=== PATIENT | male | born 1980 | race Caucasian/White ===

== ENCOUNTER 2016-03-28 16:45 | Emergency (ER) | payer OTHER ==
[~2016-03-28] VITALS: Wt 115.0 kg
[2016-03-28] MEDS ORDERED: SOD CHLORIDE 0.9% 1,000 ML IV STA (18:15)
[2016-03-28] MEDS ORDERED: SOD CHLORIDE 0.9% 1,000 ML IV ONE (18:30)
--- NOTE | 2016-03-28 18:32 | ERD ---
ER Documentation Chief Complaint Date/Time DATE: 03/28/16 TIME: 18:30 Chief Complaint SUDDEN ONSET OF DIZZINESS SINCE TODAY. NO NEURO DEF NO PAIN. HPI 35-year-old male with history of diabetes complains of dizziness when he stood up this afternoon at work today. He complains of a vertiginous sensation with the room is spinning and describes a headache at the crown of his head. Apparently he was seen at a work facility and his blood sugar was 220 and he had 4+ ketones in his urine, he was then referred to the emergency department to rule out DKA. He denies any nausea, vomiting, abdominal pain, fevers or chills or chest pain shortness of breath. ROS All systems reviewed and are negative except as per history of present illness. Medications Home Meds Active Scripts Metformin* (Glucophage*) 500 Mg Tab, 500 MG PO BID, #30 TAB Prov:HAY JOINER PA-C 03/28/16 Allergies Allergies: Coded Allergies: No Known Allergy (Unverified , 03/28/16) PMhx/Soc Medical and Surgical Hx: pt denies Medical Hx, pt denies Surgical Hx Hx Alcohol Use: No Hx Substance Use: No Hx Tobacco Use: No Smoking Status: Never smoker Physical Exam Vitals Vital Signs Date Time Temp Pulse Resp B/P Pulse Ox O2 Delivery O2 Flow Rate FiO2 03/28/16 17:00 97.5 94 20 129/79 98 Physical Exam General: Well-developed, well-nourished. The patient appears in no acute distress. HEENT: Head is normocephalic, atraumatic. No scleral icterus. Pupils are equal , round, and reactive. Oral mucous membranes are moist. No pharyngeal erythema. Neck: Supple. Nontender. Lungs: Clear to auscultation. Normal air movement. Heart: Regular rate and rhythm. S1 and S2 are normal. No murmurs, gallops, or rubs. Abdomen: Soft, nontender, nondistended. Bowel sounds are normoactive. Extremities: No clubbing or cyanosis. Normal pulses. Moving extremities x 4. No weakness. Neuro: M/S: Alert and oriented Face: EOMI, CN II-XII grossly intact Motor: Normal strength throughout Sensation: Normal sensation throughout Speech: Normal Cerebel: Normal coordination Normal gait Normal finger to nose DTR: 2+ and symmetric upper/lower extremities. Skin: Normal turgor. No rash or lesions. Result Diagram: 03/28/16192403/28/161924 Results 24 hrs Laboratory Tests Test 03/28/16 19:13 03/28/16 19:25 03/28/16 20:27 Bedside Glucose 361mg/dL 288mg/dL Anion Gap 19 Blood Morphology Comment Blood Urea Nitrogen 17mg/dl Calcium Level 9.3mg/dl Carbon Dioxide Level 29mmol/L Chloride Level 98mmol/L Creatinine 0.69mg/dl Glucose Level 363mg/dl Hematocrit 46.6% Hemoglobin 15.5g/dl Mean Corpuscular Hemoglobin 28.4pg Mean Corpuscular Hemoglobin Concent 33.2g/dl Mean Corpuscular Volume 85.6fl Mean Platelet Volume 9.6fl Platelet Count 23841^3/UL Potassium Level 4.5mmol/L Red Blood Count 5.4510^6/ul Red Cell Distribution Width 13.6% Sodium Level 141mmol/L Urine Bilirubin NEGATIVE Urine Clarity CLEAR Urine Color LT. YELLOW Urine Glucose >=1000% Urine Hemoglobin NEGATIVE Urine Ketones TRACE Urine Leukocyte Esterase NEGATIVE Urine Nitrite NEGATIVE Urine Specific [place] 1.020 Urine Total Protein NEGATIVE Urine Urobilinogen 0.2 E.U./dL Urine pH 6.0 White Blood Count 20.110^3/ul Current Medications Medications (Trade) Dose Ordered Sig/Mike Route PRN Reason Start Time Stop Time Status Last Admin Dose Admin Sodium Chloride 1,000 ml @ 1,000 mls/hr Q1H STAT IV 03/28/16 18:15 03/28/16 19:14 DC 03/28/16 18:58 Sodium Chloride (NS) 1,000 ml @ 1,000 mls/hr Q1H ONCE IV 03/28/16 18:30 03/28/16 19:29 DC 03/28/16 18:58 12-lead EKG(interpreted by supervising physician): Dr. Trevino Rate/Rhythm: Normal Sinus Rhythm, rate of 87 QRS, ST, T-waves: No changes consistent w/ acute ischemia, no intervals, no dysrhythmias, no ectopy Impression: No evidence of ischemia or arrhythmia Procedures/MDM ED course: Patient an IV line established, blood and urine were obtained, he was given 2 L of normal saline. No evidence of diabetic ketoacidosis on blood work, urine was normal. Accu-Chek repeated was 288. MDM: 35-year-old male with history of diabetes comes in with dizziness, patient' s initial blood sugar was 363, reduced to 88. Patient's blood work was unremarkable aside from a nonspecific leukocytosis of 20,000, he does not show signs of sepsis, there is no tachycardia or fever associated with this. All electrolytes are normal, patient does not have DKA or any electrolyte abnormalities. He was advised that he needs to follow-up with his primary care doctor which he does have for an A1c, he will be given a short course of metformin 500 twice a day to be taken. He was given dietary lifestyle changes as well. Patient's blood pressure was elevated (>120/80) but appears stable without evidence of hypertension emergency or urgency. The patient was counseled about the risks of hypertension and urged to pursue outpatient monitoring and therapy within a week with their primary care physician. Departure Diagnosis: Primary Impression: Diabetes type 2, uncontrolled Condition: HAY Thomas PA-C Mar 28, 2016 18:32
[2016-03-28 19:44] LABS: ADD UMIC NO; URINE BILIRUBIN (Dip) NEGATIVE (NEGATIVE); URINE BLOOD (Dip) NEGATIVE (NEGATIVE); URINE COLOR LT. YELLOW (YELLOW); URINE GLUCOSE (Dip) >=1000 % (NEGATIVE); URINE KETONES (Dip) TRACE (NEGATIVE); URINE LEUKOCYTE ESTERASE (Dip) NEGATIVE (NEGATIVE); URINE NITRITE (Dip) NEGATIVE (NEGATIVE); URINE TOTAL PROTEIN (Dip) NEGATIVE (NEGATIVE); URINE UROBILINOGEN (Dip) 0.2 E.U./dL (0.1-1.0)
[2016-03-28 19:45] LABS: HEMATOCRIT 46.6 % (42.0-52.0); HEMOGLOBIN 15.5 g/dl (14.0-18.0); MEAN CORPUSCULAR HEMOGLOBIN 28.4 pg (29.0-33.0); MEAN CORPUSCULAR HGB CONC 33.2 g/dl (32.0-37.0); MEAN CORPUSCULAR VOLUME 85.6 fl (82.0-101.0); MEAN PLATELET VOLUME 9.6 fl (7.4-10.4); PLATELET COUNT 199 10^3/UL (140-440); RED BLOOD COUNT 5.45 10^6/ul (4.70-6.10); RED CELL DISTRIBUTION WIDTH 13.6 % (11.5-14.5); UNCORRECTED WBC 20.1 10^3/ul (4.8-10.8); WHITE BLOOD COUNT 20.1 10^3/ul (4.8-10.8)
[2016-03-28 19:50] LABS: POTASSIUM 4.5 mmol/L (3.5-5.1)
[2016-03-28 19:52] LABS: CREATININE 0.69 mg/dl (0.61-1.24)
[2016-03-28 19:53] LABS: CALCIUM 9.3 mg/dl (8.4-10.2)
[2016-03-28 20:02] LABS: CONDITION 1; LH ANALYZER COMMENTS 1
[2016-03-28] MEDS ORDERED: METF500T4 PO (20:40)
[2016-03-28 20:42] LABS: LYMPHOCYTES # 1.2 10^3/ul (0.8-2.9); MONOCYTE # 0.6 10^3/ul (0.3-0.9); NEUTROPHIL # 18.3 10^3/ul (1.6-7.5); PLATELET ESTIMATE PLT APPEAR ADEQUATE
[2016-03-28 21:13] VITALS: BP 126/64; PULSE 80; RESP 20; TEMP 97.9
== END 2016-03-28 21:13 | disposition home or self-care (01) ==
LOC: FTE 16:45
DX: E11.9 Type 2 diabetes mellitus without complications (principal); Z79.84 Long term (current) use of oral hypoglycemic drugs
CPT/HCPCS: 36415; 80048; 81003; 82962; 85025; 93005; 96360; 99284; J7030